=== PATIENT | female | born 1995 | race Caucasian/White ===

== ENCOUNTER 2019-12-26 17:36 | Inpatient (IN) | payer MEDICAID, SELFPAY ==
[2019-12-26 17:59] VITALS: BP 169/96; PULSE 103; RESP 18; TEMP 36.7; O2SAT 98; BMI 35.7
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
[2019-12-26 18:39] LABS: HCG Qualitative Urine. Negative (Negative)
[2019-12-26 18:41] LABS: Basophils # 0.1 10^3/uL (0.0-0.1); Basophils % 0.4 %; Eosinophils # 0.1 10^3/uL (0.0-0.8); Eosinophils % 0.4 %; Hematocrit 43.5 % (37.0-47.0); Hemoglobin 13.7 g/dL (11.5-15.3); Lymphocytes # 2.2 10^3/uL (0.8-4.8); Lymphocytes % 16.5 %; Mean Corpuscular HGB Conc 31.5 g/dL (30.0-36.0); Mean Corpuscular Hemoglobin 27.1 pg (28.0-34.0); Mean Corpuscular Volume 86.1 fL (81-99); Mean Platelet Volume 10.1 fL (7.4-10.4); Monocytes # 0.7 10^3/uL (0.2-0.9); Monocytes % 4.9 %; Neutrophils # 10.5 10^3/uL (1.8-7.7); Neutrophils % 77.5 %; Nucleated Red Blood Cells % 0 %; Platelet Count 324 10^3/cmm (130-400); Red Blood Count 5.05 10^6/uL (4.1-5.3); Red Cell Distribution Width 15.4 % (12.1-15.1); White Blood Count 13.5 10^3/uL (4.0-10.0)
[2019-12-26 18:45] LABS: Amphetamines Screen Urine Negative (Negative); Barbiturates Screen Urine Negative (Negative); Benzodiazepines Screen Urine Negative (Negative); Cocaine Screen Urine Negative (Negative); Opiate Screen Urine Negative (Negative); PCP Screen Urine Negative (Negative); THC Screen Urine Positive (Negative)
[2019-12-26 18:53] LABS: Urine Appearance Hazy (CLEAR); Urine Color Yellow (Yellow)
[2019-12-26 18:54] LABS: Bilirubin Urine Neg (NEGATIVE); Blood Urine 3+ (Negative); Glucose Urine UA Norm (Normal); Ketones Urine 1+ (Negative); Leukocyte Esterase Urine Trace (Negative); Nitrate Urine Negative (Negative); Protein Urine Trace (Negative); Urobilinogen Urine Norm (Negative); pH Urine 6 (5-7)
[2019-12-26 18:55] LABS: Add Urine Microscopic? YES
[2019-12-26 18:56] LABS: Bacteria Urine 1+; Mucus Urine 2+
[2019-12-26 18:57] LABS: Add Urine Culture? No; Fine Granular Casts Urine 0-4 /lpf
--- NOTE | 2019-12-26 19:13 | PC.NURSE ---
report received from JIGNA Ramos and care transferred to JIGNA Escudero
[2019-12-26 19:20] LABS: Alanine Aminotransferase 16 U/L (0-33); Albumin Level 4.8 g/dL (3.5-5.2); Alkaline Phosphatase 71 IU/L (35-105); Anion Gap 18.6 (5-19); Aspartate Amino Transferase 15 U/L (0-32); Blood Urea Nitrogen 9 mg/dL (6-20); Calcium 9.4 mg/dL (8.5-10.5); Carbon Dioxide 22 mmol/L (22-29); Chloride 107 mmol/L (98-107); Globulin 2.6 g/dL (1.3-4.6); Glomerular Filtration Rate 102.8 mL/min (90-130); Glucose 96 mg/dL (65-115); Osmolality Calculated 294 mOsm/kg (285-295); Potassium 3.6 mmol/L (3.5-5.1); Sodium 144 mmol/L (136-145); Thyroid Stimulating Hormone 0.72 uIU/mL (0.27-4.20); Total Bilirubin 0.3 mg/dL (0.15-1.2); Total Protein 7.4 g/dL (6.6-8.7)
[2019-12-26 19:23] LABS: Acetaminophen < 5.0 ug/mL (10-30); Alcohol Level < 10 mg/dL (0-10); Salicylate < 0.3 mg/dL (3-10)
[2019-12-26 20:00] VITALS: BP 143/84; PULSE 87; RESP 18; TEMP 37; O2SAT 98
[2019-12-26 20:12] VITALS: BP 152/96; PULSE 102; RESP 19; TEMP 36.5; O2SAT 98
[2019-12-26] MEDS: trazodone 50 mg Tablet PO (21:38)
[2019-12-26 22:00] VITALS: BP 152/96; PULSE 102; RESP 19; TEMP 36.5; O2SAT 98
--- NOTE | 2019-12-26 23:29 | PC.NURSE ---
TRAZODONE PT REQUESTING SLEEP AID. ADMINISTERED TRAZODONE 50 MG PO FOR SLEEP. WILL MONITOR FOR MEDICATION EFFECTIVENESS.
[2019-12-27 06:00] VITALS: BP 141/89; PULSE 85; RESP 16; TEMP 36.9; O2SAT 96
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
[2019-12-27] MEDS: OLANZapine 5 mg ODT PO (12:22)
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
[2019-12-27 14:00] VITALS: BP 126/83; PULSE 85; RESP 18; TEMP 37
[2019-12-27] MEDS: fluoxetine 20 mg Capsule PO (15:52)
[2019-12-27] MEDS: trazodone 50 mg Tablet PO (20:46)
[2019-12-27 20:57] VITALS: BP 137/91; PULSE 85; RESP 17; TEMP 36.9; O2SAT 97
[2019-12-27] MEDS: hyDROXYzine 25 mg Capsule 50 MG PO (21:26)
[2019-12-28 06:00] VITALS: BP 130/92; PULSE 79; RESP 16; TEMP 36.5; O2SAT 97
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
[2019-12-28] MEDS: lamoTRIgine 25 mg Tablet PO (09:37)
[2019-12-28] MEDS: fluoxetine 20 mg Capsule PO (09:37)
[2019-12-28 13:24] VITALS: BP 126/80; PULSE 86; RESP 20; TEMP 37; O2SAT 97
[2019-12-28] MEDS: hyDROXYzine 25 mg Capsule 50 MG PO (18:13)
--- NOTE | 2019-12-28 18:13 | PC.NURSE ---
Addendum entered by Adelaida Portillo LPN 12/28/19 19:04: medication effective. no further c/o anxiety. Original Note: PRN VISTARIL VISTARIL 50MG PO PER PATIENT C/O ANXIETY. WILL CONTINUE TO MONITOR FOR MEDICATION EFFECTIVENESS.
[2019-12-28] MEDS: nicotine 2 mg Gum BUCCAL ×2 (18:21→21:09)
[2019-12-28 20:38] VITALS: BP 147/97; PULSE 110; RESP 18; TEMP 36.7; O2SAT 98
[2019-12-28] MEDS: trazodone 50 mg Tablet PO ×2 (20:48→22:37)
--- NOTE | 2019-12-28 20:48 | PC.NURSE ---
TRAZODONE PT REQUESTING SLEEP AID. ADMINISTERED TRAZODONE 50 MG PO FOR SLEEP. WILL MONITOR FOR MEDICATION EFFECTIVENESS.
[2019-12-29 06:00] VITALS: BP 166/79; PULSE 85; RESP 19; TEMP 36.6; O2SAT 96
[2019-12-29] MEDS: fluoxetine 20 mg Capsule PO (08:48)
[2019-12-29] MEDS: lamoTRIgine 25 mg Tablet PO (08:48)
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
[2019-12-29] MEDS: nicotine 2 mg Gum BUCCAL (13:41)
== END 2019-12-29 16:59 | disposition home or self-care (01) | DRG 885 ==
LOC: ER 19:46 → NP 19:47
PROVIDERS: Emergency Medicine; Admitting Provider Psychiatry & Neurology Psychiatry; Visit Provider Psychiatry & Neurology Psychiatry
DX: F32.2 Major depressive disorder, single episode, severe without psychotic features (principal); R45.851 Suicidal ideations; F41.9 Anxiety disorder, unspecified; F12.90 Cannabis use, unspecified, uncomplicated; M79.7 Fibromyalgia; F17.210 Nicotine dependence, cigarettes, uncomplicated; Z63.0 Problems in relationship with spouse or partner; F60.89 Other specific personality disorders
CPT/HCPCS: 12345; 73030; 73060; 80053; 80306; 80307; 81001; 81025; 84443; 85025; 99284